=== PATIENT | male | born 1940 | race Caucasian/White ===

== ENCOUNTER 2018-05-05 21:13 | Emergency (ER) | payer MEDICARE ==
[~2018-05-05] VITALS: Ht 182.9 cm; Wt 87.1 kg
--- NOTE | 2018-05-05 21:13 | NUR ---
BBRA 89 FROM HOME,[facility] TOOK AMBIEN 6.25MG X4,XANAX 0.25MG X12.+SI,-HI -N/V/D. VSS NO ACUTE DISTRESS AT THIS TIME. BREATHING WNL WITH ADEQUATE CHEST RISE/FALL. PT IS VISABLY SAD AND VERBALIZING INTENT FOR SI WITH OVERDOSE. SKIN WARM AND INTACT. PATIENT PLACED ON PULSE OX AND MONITOR. WILL CONTINUE TO MONITOR FOR ANY CHANGES DURING THE SHIFT.
--- NOTE | 2018-05-05 21:14 | NUR ---
ER MD GARCIA AT BEDSIDE
[2018-05-05 21:41] LABS: BASOPHILS % (AUTO) 0.6 % (0.0-2.0); EOSINOPHILS % (AUTO) 1.7 % (0.0-6.0); HEMATOCRIT 46 % (39-51); HEMOGLOBIN 15.6 g/dL (13.5-17.5); LYMPHOCYTES # (AUTO) 1.1 /CMM (0.8-4.8); LYMPHOCYTES % (AUTO) 13.9 % (20.0-44.0); MEAN CORPUSCULAR HEMOGLOBIN 31 PG (26.0-33.0); MEAN CORPUSCULAR HGB CONC 34 g/dl (31.0-36.0); MEAN CORPUSCULAR VOLUME 92 fL (80-96); MONOCYTES # (AUTO) 0.7 /CMM (0.1-1.30); NEUTROPHILS # (AUTO) 5.8 /CMM (1.8-8.9); NEUTROPHILS % (AUTO) 74.8 % (43.0-81.0); PLATELET COUNT (AUTO) 260 /CMM (150-450); RDW COEFFICIENT OF VARIATION 12.9 (11.5-15.0); RED BLOOD CELL COUNT(AUTO) 5.02 MIL/uL (4.5-6.0); WHITE BLOOD COUNT (AUTO) 7.7 K/uL (4.3-11.0)
[2018-05-05 21:42] LABS: APPEARANCE,URINE Clear (CLEAR); BILIRUBIN,URINE Negative (NEGATIVE); BLOOD, URINE Negative Ery/uL (NEGATIVE); COLOR,URINE Yellow (YELLOW); KETONES,URINE Negative (NEGATIVE); LEUKOCYTE ESTERASE ,URINE Negative (NEGATIVE); NITRITE, URINE Negative (NEGATIVE); PH,URINE 5.5 (5.0-8.0); PROTEIN,URINE Negative (NEGATIVE); UGLUCOSE Negative (NEGATIVE); UROBILINOGEN,URINE 0.2 EU/dL (0.2)
--- NOTE | 2018-05-05 21:50 | NUR ---
DEPUTY COMMISSIONER AT BEDSIDE
[2018-05-05 21:53] LABS: CALCIUM, SERUM 9.2 mg/dL (8.5-10.1); CARBON DIOXIDE 23 mmol/L (21-32); CHLORIDE 103 mmol/L (98-107); CREATININE 1.6 mg/dL (0.6-1.3); GLUCOSE 107 mg/dL (74-106); POTASSIUM 4.2 mmol/L (3.5-5.1); SODIUM SERUM 135 mmol/L (136-145); UREA NITROGEN, BLOOD 21 mg/dL (7-18)
[2018-05-05 21:58] LABS: ALANINE AMINOTRANSFERASE 23 U/L (12-78); ALBUMIN 3.6 g/dL (3.4-5.0); ALKALINE PHOSPHATASE 79 U/L (46-116); ASPARTATE AMINOTRANSFERASE 19 U/L (15-37); BILIRUBIN,DIRECT 0.2 mg/dL (0.0-0.2); BILIRUBIN,TOTAL 0.8 mg/dL (0.2-1.0); TOTAL PROTEIN, SERUM 7.3 g/dL (6.4-8.2)
[2018-05-05 21:59] LABS: ACETAMINOPHEN 0 ug/ml (10-30); ALCOHOL, BLOOD < 5 mg/dL (0-0); SALICYLATE 1.2 mg/dL (2.8-20.0)
[2018-05-05] MEDS ORDERED: IV NS 0.9% 1,000 ML BAG IV ONE (22:00)
--- NOTE | 2018-05-05 22:00 | NUR ---
EKG AT [facility]
--- NOTE | 2018-05-05 22:09 | NUR ---
CALLED [employer]
--- NOTE | 2018-05-05 23:50 | NUR ---
PT ACCEPTED AT [facility] UNDER [facility] SILVERIO. BE DNUMBER [id number]; REPORT NUMBER [id number]
--- NOTE | 2018-05-05 23:52 | NUR ---
CALLED [facility]; ETA 45MINUTES; TRIP NUMBER [id number]
--- NOTE | 2018-05-06 00:20 | NUR ---
REPORT GIVEN TO DENISSE AT [facility]
[2018-05-06 01:23] VITALS: BP 151/80
== END 2018-05-06 01:18 ==
LOC: ER 21:16
DX: T42.4X2A Poisoning by benzodiazepines, intentional self-harm, initial encounter (principal); F32.9 Major depressive disorder, single episode, unspecified; F41.9 Anxiety disorder, unspecified; Y92.89 Other specified places as the place of occurrence of the external cause
CPT/HCPCS: 36415; 71045-TC; 80048-TC; 80076-TC; 80305; 81000-TC; 85025-TC; G0480; Z7610

== ENCOUNTER 2018-09-21 14:46 | Inpatient (IN) | payer MEDICARE ==
[~2018-09-21] VITALS: Ht 182.9 cm; Wt 80.0 kg
[2018-09-21 15:23] LABS: BASOPHILS % (AUTO) 0.2 % (0.0-2.0); EOSINOPHILS % (AUTO) 0.4 % (0.0-6.0); HEMATOCRIT 42 % (39-51); HEMOGLOBIN 14.5 g/dL (13.5-17.5); LYMPHOCYTES # (AUTO) 1.1 /CMM (0.8-4.8); LYMPHOCYTES % (AUTO) 10.4 % (20.0-44.0); MEAN CORPUSCULAR HGB CONC 34 g/dl (31.0-36.0); MEAN CORPUSCULAR VOLUME 93 fL (80-96); MONOCYTES # (AUTO) 0.3 /CMM (0.1-1.30); MONOCYTES % (AUTO) 3.2 % (2.0-12.0); NEUTROPHILS % (AUTO) 85.8 % (43.0-81.0); PLATELET COUNT (AUTO) 243 /CMM (150-450); RED BLOOD CELL COUNT(AUTO) 4.54 MIL/uL (4.5-6.0); WHITE BLOOD COUNT (AUTO) 10.5 K/uL (4.3-11.0)
[2018-09-21] MEDS ORDERED: IV NS 0.9% 1,000 ML BAG IV ONE (15:30)
[2018-09-21 15:31] LABS: CALCIUM, SERUM 9.6 mg/dL (8.5-10.1); CARBON DIOXIDE 26 mmol/L (21-32); CHLORIDE 104 mmol/L (98-107); CREATININE 1.6 mg/dL (0.6-1.3); GLUCOSE 133 mg/dL (74-106); POTASSIUM 5.4 mmol/L (3.5-5.1); SODIUM SERUM 138 mmol/L (136-145); UREA NITROGEN, BLOOD 34 mg/dL (7-18)
[2018-09-21 15:37] LABS: ACETAMINOPHEN 0 ug/ml (10-30); ALANINE AMINOTRANSFERASE 35 U/L (12-78); ALBUMIN 3.9 g/dL (3.4-5.0); ALCOHOL, BLOOD < 3 mg/dL (0-0); ALKALINE PHOSPHATASE 88 U/L (46-116); ASPARTATE AMINOTRANSFERASE 28 U/L (15-37); BILIRUBIN,DIRECT 0.1 mg/dL (0.0-0.2); BILIRUBIN,TOTAL 0.7 mg/dL (0.2-1.0); SALICYLATE 1.6 mg/dL (2.8-20.0); TOTAL PROTEIN, SERUM 7.8 g/dL (6.4-8.2)
[2018-09-21 15:46] LABS: SERUM AMMONIA < 10 umol/L (11-32)
[2018-09-21 16:05] LABS: THYROID STIMULATING HORMONE 1.168 uIU/mL (0.358-3.74)
[2018-09-21 16:16] LABS: APPEARANCE,URINE Cloudy (CLEAR); BILIRUBIN,URINE Negative (NEGATIVE); BLOOD, URINE Moderate Ery/uL (NEGATIVE); COLOR,URINE Yellow (YELLOW); KETONES,URINE Negative (NEGATIVE); LEUKOCYTE ESTERASE ,URINE Small (NEGATIVE); NITRITE, URINE Positive (NEGATIVE); PH,URINE 5.5 (5.0-8.0); PROTEIN,URINE Negative (NEGATIVE); UGLUCOSE Negative (NEGATIVE); UROBILINOGEN,URINE 0.2 EU/dL (0.2)
[2018-09-21 17:10] LABS: BACTERIA,URINE 3+ /HPF (None Seen); RBC,URINE 21-50 /HPF (0-2); SQUAMOUS EPITHELIAL CELL,UR Few /HPF (None Seen)
[2018-09-21] MEDS ORDERED: CEFTRIAXONE 1 G VIAL IM ONE (18:30)
[2018-09-21] MEDS ORDERED: CEFTRIAXONE 1GM BAG (ER ONLY) 50 ML IV ONE (18:47)
[2018-09-21] MEDS ORDERED: CEFTRIAXONE 1GM BAG (ER ONLY) 1 GM/50 ML PIGGYBACK IV ONE (19:00)
[2018-09-21] MEDS ORDERED: Z GUARD REMEDY 2 OZ OINT TP PRN (19:30)
[2018-09-21] MEDS ORDERED: MAGNESIUM HYDROXIDE 30 ML UDC PO PRN (19:30)
[2018-09-21] MEDS ORDERED: ONDANSETRON HCL/PF 4 MG/2 ML VIAL IVP PRN (19:30)
[2018-09-21] MEDS ORDERED: ACETAMINOPHEN 325 MG TABLET PO PRN (19:30)
[2018-09-21] MEDS ORDERED: ZOLP5TAB8 PO (19:58)
[2018-09-21] MEDS ORDERED: ESCI10TA PO (19:58)
[2018-09-21] MEDS ORDERED: TAMS-12 PO (19:58)
[2018-09-21] MEDS ORDERED: LORA0.5T PO (19:58)
[2018-09-21] MEDS ORDERED: QUET25TA PO (19:58)
[2018-09-21] MEDS ORDERED: ATEN25TA PO (19:58)
[2018-09-21 20:00] VITALS: BP 122/76
[2018-09-21] MEDS: ENOXAPARIN SODIUM 40 MG/0.4 ML DISP.SYRIN SQ SCH (20:36)
[2018-09-21] MEDS: IV NS 0.9% 1,000 ML IV PRN (20:36)
[2018-09-22] MEDS ORDERED: QUETIAPINE FUMARATE 25 MG TABLET PO PRN
[2018-09-22 00:18] VITALS: BP 124/64
[2018-09-22 04:48] VITALS: BP 109/57
[2018-09-22] MEDS: IV NS 0.9% 1,000 ML IV PRN (06:16)
[2018-09-22 06:35] LABS: BASOPHILS % (AUTO) 0.2 % (0.0-2.0); EOSINOPHILS % (AUTO) 1.3 % (0.0-6.0); HEMATOCRIT 38 % (39-51); LYMPHOCYTES # (AUTO) 1.1 /CMM (0.8-4.8); LYMPHOCYTES % (AUTO) 12.5 % (20.0-44.0); MEAN CORPUSCULAR HGB CONC 34 g/dl (31.0-36.0); MEAN CORPUSCULAR VOLUME 92 fL (80-96); MONOCYTES # (AUTO) 0.9 /CMM (0.1-1.30); MONOCYTES % (AUTO) 10.6 % (2.0-12.0); NEUTROPHILS # (AUTO) 6.7 /CMM (1.8-8.9); NEUTROPHILS % (AUTO) 75.4 % (43.0-81.0); PLATELET COUNT (AUTO) 224 /CMM (150-450); RED BLOOD CELL COUNT(AUTO) 4.12 MIL/uL (4.5-6.0); WHITE BLOOD COUNT (AUTO) 8.9 K/uL (4.3-11.0)
[2018-09-22 06:56] LABS: CALCIUM, SERUM 8.6 mg/dL (8.5-10.1); CARBON DIOXIDE 21 mmol/L (21-32); CHLORIDE 109 mmol/L (98-107); CREATININE 1.5 mg/dL (0.6-1.3); GLUCOSE 81 mg/dL (74-106); MAGNESIUM 1.6 mg/dL (1.8-2.4); PHOSPHORUS 2.5 mg/dL (2.5-4.9); POTASSIUM 4.1 mmol/L (3.5-5.1); SODIUM SERUM 141 mmol/L (136-145); UREA NITROGEN, BLOOD 27 mg/dL (7-18)
[2018-09-22 06:58] LABS: CHOLESTEROL 196 mg/dL (<200); HDL CHOLESTEROL 30 mg/dL (40-60); LDL 135 mg/dL (0-99); TRIGLYCERIDES 192 mg/dL (30-150)
[2018-09-22 09:00] VITALS: BP 120/58
[2018-09-22] MEDS: Magnesium 1GM/D5W 100ML PREMIX 100 ML IV SCH ×4 (11:15→16:16)
[2018-09-22] MEDS ORDERED: ESCITALOPRAM OXALATE (10 MG) 10 MG TABLET PO SCH (12:00)
[2018-09-22] MEDS: QUETIAPINE FUMARATE 25 MG TABLET PO SCH (16:49)
[2018-09-22] MEDS: CEFTRIAXONE 1 G in IV D5W 50 ML IV SCH (16:56)
[2018-09-22 17:00] VITALS: BP 122/56
[2018-09-22 20:00] VITALS: BP 105/52
[2018-09-22 20:05] VITALS: BP 105/52
[2018-09-22] MEDS: ATORVASTATIN 40 MG TABLET PO SCH (21:09)
[2018-09-22] MEDS: TAMSULOSIN 0.4 MG CAP.SR.24H PO SCH (21:09)
[2018-09-22] MEDS: ENOXAPARIN SODIUM 40 MG/0.4 ML DISP.SYRIN SQ SCH (21:10)
[2018-09-22] MEDS: ZOLPIDEM TARTRATE 5 MG TABLET PO PRN (22:48)
[2018-09-23] MEDS: IV NS 0.9% 1,000 ML IV PRN ×3 (02:19→23:57)
[2018-09-23 06:39] LABS: BASOPHILS % (AUTO) 0.4 % (0.0-2.0); EOSINOPHILS % (AUTO) 3.9 % (0.0-6.0); HEMATOCRIT 38 % (39-51); HEMOGLOBIN 13.1 g/dL (13.5-17.5); LYMPHOCYTES # (AUTO) 1.3 /CMM (0.8-4.8); LYMPHOCYTES % (AUTO) 20.8 % (20.0-44.0); MEAN CORPUSCULAR HGB CONC 34 g/dl (31.0-36.0); MEAN CORPUSCULAR VOLUME 93 fL (80-96); MONOCYTES # (AUTO) 0.7 /CMM (0.1-1.30); MONOCYTES % (AUTO) 10.7 % (2.0-12.0); NEUTROPHILS # (AUTO) 4.1 /CMM (1.8-8.9); NEUTROPHILS % (AUTO) 64.2 % (43.0-81.0); PLATELET COUNT (AUTO) 202 /CMM (150-450); RED BLOOD CELL COUNT(AUTO) 4.12 MIL/uL (4.5-6.0); WHITE BLOOD COUNT (AUTO) 6.5 K/uL (4.3-11.0)
[2018-09-23 07:01] LABS: CALCIUM, SERUM 8.5 mg/dL (8.5-10.1); CARBON DIOXIDE 23 mmol/L (21-32); CHLORIDE 109 mmol/L (98-107); CREATININE 1.6 mg/dL (0.6-1.3); GLUCOSE 85 mg/dL (74-106); MAGNESIUM 2.3 mg/dL (1.8-2.4); PHOSPHORUS 2.6 mg/dL (2.5-4.9); POTASSIUM 3.8 mmol/L (3.5-5.1); SODIUM SERUM 141 mmol/L (136-145); UREA NITROGEN, BLOOD 28 mg/dL (7-18)
[2018-09-23 07:59] VITALS: BP 118/66
[2018-09-23 08:00] VITALS: BP 118/66
[2018-09-23] MEDS: QUETIAPINE FUMARATE 25 MG TABLET PO SCH ×2 (08:05→17:20)
[2018-09-23] MEDS: ATENOLOL 25 MG TABLET PO SCH (08:07)
[2018-09-23] MEDS ORDERED: DULOXETINE HCL 30 MG CAPSULE.DR PO SCH (13:00)
[2018-09-23 16:00] VITALS: BP 122/66
[2018-09-23] MEDS: CEFTRIAXONE 1 G in IV D5W 50 ML IV SCH (17:20)
[2018-09-23 20:00] VITALS: BP 128/73
[2018-09-23] MEDS: TAMSULOSIN 0.4 MG CAP.SR.24H PO SCH (21:44)
[2018-09-23] MEDS: DULOXETINE HCL 30 MG CAPSULE.DR PO SCH (21:44)
[2018-09-23] MEDS: ATORVASTATIN 40 MG TABLET PO SCH (21:44)
[2018-09-23] MEDS: ENOXAPARIN SODIUM 40 MG/0.4 ML DISP.SYRIN SQ SCH (21:48)
[2018-09-23] MEDS: ZOLPIDEM TARTRATE 5 MG TABLET PO PRN (23:01)
[2018-09-24 06:44] LABS: BASOPHILS % (AUTO) 0.4 % (0.0-2.0); EOSINOPHILS % (AUTO) 4.7 % (0.0-6.0); HEMATOCRIT 39 % (39-51); HEMOGLOBIN 13.4 g/dL (13.5-17.5); LYMPHOCYTES # (AUTO) 1.4 /CMM (0.8-4.8); LYMPHOCYTES % (AUTO) 21.8 % (20.0-44.0); MEAN CORPUSCULAR HGB CONC 35 g/dl (31.0-36.0); MEAN CORPUSCULAR VOLUME 93 fL (80-96); MONOCYTES # (AUTO) 0.6 /CMM (0.1-1.30); MONOCYTES % (AUTO) 10.4 % (2.0-12.0); NEUTROPHILS # (AUTO) 3.9 /CMM (1.8-8.9); NEUTROPHILS % (AUTO) 62.7 % (43.0-81.0); PLATELET COUNT (AUTO) 200 /CMM (150-450); WHITE BLOOD COUNT (AUTO) 6.2 K/uL (4.3-11.0)
[2018-09-24 07:14] LABS: CALCIUM, SERUM 8.4 mg/dL (8.5-10.1); CARBON DIOXIDE 22 mmol/L (21-32); CHLORIDE 109 mmol/L (98-107); CREATININE 1.4 mg/dL (0.6-1.3); GLUCOSE 90 mg/dL (74-106); MAGNESIUM 2.1 mg/dL (1.8-2.4); PHOSPHORUS 2.8 mg/dL (2.5-4.9); POTASSIUM 4.1 mmol/L (3.5-5.1); SODIUM SERUM 140 mmol/L (136-145); UREA NITROGEN, BLOOD 21 mg/dL (7-18)
[2018-09-24] MEDS: HYDROCODONE/APAP 5/325MG 1 EACH TABLET PO PRN ×2 (07:35→13:41)
[2018-09-24 08:00] VITALS: BP 130/73
[2018-09-24] MEDS: ATENOLOL 25 MG TABLET PO SCH (09:55)
[2018-09-24] MEDS: QUETIAPINE FUMARATE 25 MG TABLET PO SCH ×2 (09:55→17:21)
[2018-09-24] MEDS: DULOXETINE HCL 30 MG CAPSULE.DR PO SCH ×2 (09:55→21:17)
[2018-09-24 16:00] VITALS: BP 118/65
[2018-09-24] MEDS: CEFTRIAXONE 1 G in IV D5W 50 ML IV SCH (17:21)
[2018-09-24] MEDS: FINASTERIDE (5 MG) 5 MG TABLET PO SCH (18:38)
[2018-09-24 20:00] VITALS: BP 130/70
[2018-09-24] MEDS: ATORVASTATIN 40 MG TABLET PO SCH (21:11)
[2018-09-24] MEDS: TAMSULOSIN 0.4 MG CAP.SR.24H PO SCH (21:11)
[2018-09-24 22:00] VITALS: BP 130/70
[2018-09-24] MEDS ORDERED: TAMSULOSIN 0.4 MG CAP.SR.24H PO SCH (22:00)
[2018-09-25] MEDS: IV NS 0.9% 1,000 ML IV PRN ×2 (06:02→17:01)
[2018-09-25 06:06] VITALS: BP 130/70
[2018-09-25 06:59] LABS: BASOPHILS % (AUTO) 0.2 % (0.0-2.0); EOSINOPHILS % (AUTO) 4.2 % (0.0-6.0); HEMATOCRIT 36 % (39-51); HEMOGLOBIN 12.6 g/dL (13.5-17.5); LYMPHOCYTES # (AUTO) 1.1 /CMM (0.8-4.8); LYMPHOCYTES % (AUTO) 16.2 % (20.0-44.0); MEAN CORPUSCULAR HGB CONC 35 g/dl (31.0-36.0); MEAN CORPUSCULAR VOLUME 93 fL (80-96); MONOCYTES # (AUTO) 0.7 /CMM (0.1-1.30); NEUTROPHILS # (AUTO) 4.6 /CMM (1.8-8.9); NEUTROPHILS % (AUTO) 69.4 % (43.0-81.0); PLATELET COUNT (AUTO) 201 /CMM (150-450); RED BLOOD CELL COUNT(AUTO) 3.87 MIL/uL (4.5-6.0); WHITE BLOOD COUNT (AUTO) 6.6 K/uL (4.3-11.0)
[2018-09-25 07:17] LABS: ALANINE AMINOTRANSFERASE 33 U/L (12-78); ALBUMIN 2.8 g/dL (3.4-5.0); ALKALINE PHOSPHATASE 72 U/L (46-116); ASPARTATE AMINOTRANSFERASE 34 U/L (15-37); BILIRUBIN,TOTAL 0.7 mg/dL (0.2-1.0); CALCIUM, SERUM 8.4 mg/dL (8.5-10.1); CARBON DIOXIDE 23 mmol/L (21-32); CHLORIDE 108 mmol/L (98-107); CREATININE 1.4 mg/dL (0.6-1.3); GLUCOSE 90 mg/dL (74-106); MAGNESIUM 1.8 mg/dL (1.8-2.4); SODIUM SERUM 140 mmol/L (136-145); TOTAL PROTEIN, SERUM 5.9 g/dL (6.4-8.2); UREA NITROGEN, BLOOD 20 mg/dL (7-18)
[2018-09-25] MEDS: HYDROCODONE/APAP 5/325MG 1 EACH TABLET PO PRN (07:44)
[2018-09-25 08:00] VITALS: BP 127/67
[2018-09-25] MEDS: FINASTERIDE (5 MG) 5 MG TABLET PO SCH (08:36)
[2018-09-25] MEDS: ATENOLOL 25 MG TABLET PO SCH (08:36)
[2018-09-25] MEDS: QUETIAPINE FUMARATE 25 MG TABLET PO SCH ×2 (08:36→17:01)
[2018-09-25] MEDS: DULOXETINE HCL 30 MG CAPSULE.DR PO SCH ×2 (08:36→21:15)
[2018-09-25 16:00] VITALS: BP 117/59
[2018-09-25] MEDS: CEFTRIAXONE 1 G in IV D5W 50 ML IV SCH (17:02)
[2018-09-25 20:00] VITALS: BP 109/55
[2018-09-25] MEDS: TAMSULOSIN 0.4 MG CAP.SR.24H PO SCH (21:15)
[2018-09-25] MEDS: ATORVASTATIN 40 MG TABLET PO SCH (21:16)
[2018-09-25] MEDS ORDERED: TEMAZEPAM 7.5 MG CAPSULE PO PRN (22:00)
[2018-09-26] MEDS: HYDROCODONE/APAP 5/325MG 1 EACH TABLET PO PRN ×2 (02:04→17:23)
[2018-09-26] MEDS: IV NS 0.9% 1,000 ML IV PRN ×2 (06:15→20:50)
[2018-09-26 07:13] LABS: BASOPHILS % (AUTO) 0.7 % (0.0-2.0); EOSINOPHILS % (AUTO) 6.3 % (0.0-6.0); HEMATOCRIT 34 % (39-51); HEMOGLOBIN 11.8 g/dL (13.5-17.5); LYMPHOCYTES # (AUTO) 1.4 /CMM (0.8-4.8); LYMPHOCYTES % (AUTO) 24.2 % (20.0-44.0); MEAN CORPUSCULAR HGB CONC 35 g/dl (31.0-36.0); MEAN CORPUSCULAR VOLUME 92 fL (80-96); MONOCYTES # (AUTO) 0.7 /CMM (0.1-1.30); MONOCYTES % (AUTO) 11.7 % (2.0-12.0); NEUTROPHILS # (AUTO) 3.2 /CMM (1.8-8.9); NEUTROPHILS % (AUTO) 57.1 % (43.0-81.0); PLATELET COUNT (AUTO) 198 /CMM (150-450); RED BLOOD CELL COUNT(AUTO) 3.72 MIL/uL (4.5-6.0); WHITE BLOOD COUNT (AUTO) 5.7 K/uL (4.3-11.0)
[2018-09-26 07:23] LABS: CALCIUM, SERUM 8.1 mg/dL (8.5-10.1); CARBON DIOXIDE 22 mmol/L (21-32); CHLORIDE 109 mmol/L (98-107); CREATININE 1.4 mg/dL (0.6-1.3); GLUCOSE 87 mg/dL (74-106); MAGNESIUM 1.7 mg/dL (1.8-2.4); PHOSPHORUS 3.5 mg/dL (2.5-4.9); POTASSIUM 3.8 mmol/L (3.5-5.1); SODIUM SERUM 138 mmol/L (136-145); UREA NITROGEN, BLOOD 22 mg/dL (7-18)
[2018-09-26 08:00] VITALS: BP 121/68
[2018-09-26] MEDS: FINASTERIDE (5 MG) 5 MG TABLET PO SCH (08:05)
[2018-09-26] MEDS: DULOXETINE HCL 30 MG CAPSULE.DR PO SCH ×2 (08:05→20:48)
[2018-09-26 08:06] VITALS: BP 121/68
[2018-09-26] MEDS: QUETIAPINE FUMARATE 25 MG TABLET PO SCH ×2 (08:06→16:28)
[2018-09-26] MEDS: ATENOLOL 25 MG TABLET PO SCH (08:06)
[2018-09-26] MEDS: Magnesium 1GM/D5W 100ML PREMIX 100 ML IV SCH ×2 (11:40→12:38)
[2018-09-26] MEDS ORDERED: ATOR40TA PO (13:00)
[2018-09-26] MEDS ORDERED: QUET25TA PO (13:00)
[2018-09-26] MEDS ORDERED: LEVO750T21 PO (13:00)
[2018-09-26] MEDS ORDERED: DULO30CA2 PO (13:00)
[2018-09-26] MEDS: CEFTRIAXONE 1 G in IV D5W 50 ML IV SCH (16:28)
[2018-09-26 20:33] VITALS: BP 112/57
[2018-09-26] MEDS: ATORVASTATIN 40 MG TABLET PO SCH (21:23)
[2018-09-26] MEDS ORDERED: TAMSULOSIN 0.4 MG CAP.SR.24H PO SCH (22:00)
[2018-09-27 06:17] LABS: BASOPHILS % (AUTO) 0.5 % (0.0-2.0); EOSINOPHILS % (AUTO) 5.8 % (0.0-6.0); HEMATOCRIT 35 % (39-51); HEMOGLOBIN 12.2 g/dL (13.5-17.5); LYMPHOCYTES # (AUTO) 0.9 /CMM (0.8-4.8); LYMPHOCYTES % (AUTO) 17.8 % (20.0-44.0); MEAN CORPUSCULAR HGB CONC 35 g/dl (31.0-36.0); MEAN CORPUSCULAR VOLUME 93 fL (80-96); MONOCYTES # (AUTO) 0.6 /CMM (0.1-1.30); MONOCYTES % (AUTO) 11.9 % (2.0-12.0); NEUTROPHILS # (AUTO) 3.3 /CMM (1.8-8.9); PLATELET COUNT (AUTO) 212 /CMM (150-450); RED BLOOD CELL COUNT(AUTO) 3.78 MIL/uL (4.5-6.0); WHITE BLOOD COUNT (AUTO) 5.2 K/uL (4.3-11.0)
[2018-09-27 06:43] LABS: CALCIUM, SERUM 8.2 mg/dL (8.5-10.1); CARBON DIOXIDE 22 mmol/L (21-32); CHLORIDE 111 mmol/L (98-107); CREATININE 1.3 mg/dL (0.6-1.3); GLUCOSE 91 mg/dL (74-106); MAGNESIUM 1.9 mg/dL (1.8-2.4); PHOSPHORUS 3.6 mg/dL (2.5-4.9); POTASSIUM 4.2 mmol/L (3.5-5.1); SODIUM SERUM 141 mmol/L (136-145); UREA NITROGEN, BLOOD 23 mg/dL (7-18)
[2018-09-27 08:00] VITALS: BP 132/70
[2018-09-27] MEDS: DULOXETINE HCL 30 MG CAPSULE.DR PO SCH (08:46)
[2018-09-27] MEDS: QUETIAPINE FUMARATE 25 MG TABLET PO SCH (08:46)
[2018-09-27] MEDS: FINASTERIDE (5 MG) 5 MG TABLET PO SCH (08:46)
[2018-09-27 08:47] VITALS: BP 132/70
[2018-09-27] MEDS: ATENOLOL 25 MG TABLET PO SCH (08:47)
[2018-09-27] MEDS: IV NS 0.9% 1,000 ML IV PRN (08:48)
== END 2018-09-27 15:00 | disposition home health service (06) | DRG 193 ==
LOC: ER 14:48 → TELE 18:32 → MED 09-22 10:27
PROVIDERS: ADMIT Nurse Practitioner Acute Care; ATTEND Registered Nurse
DX: J15.9 Unspecified bacterial pneumonia (principal); N17.0 Acute kidney failure with tubular necrosis; G92 Toxic encephalopathy; N39.0 Urinary tract infection, site not specified; F33.3 Major depressive disorder, recurrent, severe with psychotic symptoms; E87.5 Hyperkalemia; E83.42 Hypomagnesemia; F09 Unspecified mental disorder due to known physiological condition; E78.5 Hyperlipidemia, unspecified; F41.1 Generalized anxiety disorder; R33.9 Retention of urine, unspecified; T14.91XA Suicide attempt, initial encounter; N40.1 Benign prostatic hyperplasia with lower urinary tract symptoms; I51.7 Cardiomegaly; R31.0 Gross hematuria
CPT/HCPCS: 36415; 70450-TC; 71045-TC; 72125-TC; 76770-TC; 80048-TC; 80053-TC; 80061-TC; 80076-TC; 80305; 81000-TC; 82140-TC; 82550-TC; 82962-TC; 83735-TC; 84100-TC; 84443-TC; 84484-TC; 85025-TC; 85730-TC; 87081-TC; 87086-TC; A4217; G0378; G0480; J0696; J1650; J3475; J7030; J7060

== ENCOUNTER 2018-10-11 00:21 | Emergency (ER) | payer MEDICARE ==
[~2018-10-11] VITALS: Ht 182.9 cm; Wt 88.5 kg
[~2018-10-11 00:21] MED LIST: ATEN25TA PO; ATOR40TA PO; DULO30CA2 PO; LEVO750T21 PO; QUET25TA PO; TAMS-12 PO
--- NOTE | 2018-10-11 01:00 | NUR ---
PT TERENCE FROM HOME C/O SEVERE 10/10 LOWER ABD PAIN WITH URGE TO PEE BUT UNABLE TO URINATE AFTER HIS ZHU CATHETER WAS ACCIDENTALLY TUGGED ON EARLIER TODAY AROUND 1700. PT DENIES -N/-V/-D. AFEBRILE. Pt BEING SEEN BY MD AT BEDSIDE.
[2018-10-11] MEDS ORDERED: HYDROMORPHONE INJ 0.5 MG/0.5 ML SYRINGE ONE (01:48)
[2018-10-11] MEDS ORDERED: ONDANSETRON 4 MG TAB.RAPDIS ONE (01:49)
[2018-10-11] MEDS ORDERED: HYDROMORPHONE 1 MG/1 ML DISP.SYRIN IM ONE (02:00)
[2018-10-11] MEDS ORDERED: ONDANSETRON 4 MG TAB.RAPDIS SL ONE (02:00)
[2018-10-11] MEDS ORDERED: TAMSULOSIN 0.4 MG CAP.SR.24H PO ONE (03:00)
--- NOTE | 2018-10-11 03:00 | NUR ---
ZHU CATHETER HAS BEEN IRRIGATED MULT TIMES WITH STERILE WATER. BLOOD CLOT HAS FINALLY DISLODGED. Pt's ZHU CATH IF FLOWING FREELY WITH BLOOD TINGED URINE. COLLECTED URINE SAMPLE AND SENT WITH LAB.
[2018-10-11] MEDS ORDERED: TAMSULOSIN 0.4 MG CAP.SR.24H ONE (03:08)
[2018-10-11 03:15] LABS: APPEARANCE,URINE CLOUDY (CLEAR); BILIRUBIN,URINE NEGATIVE (NEGATIVE); BLOOD, URINE 3+ Ery/uL (NEGATIVE); COLOR,URINE RED (YELLOW); KETONES,URINE NEGATIVE (NEGATIVE); LEUKOCYTE ESTERASE ,URINE NEGATIVE (NEGATIVE); NITRITE, URINE NEGATIVE (NEGATIVE); PROTEIN,URINE 1+ mg/dl (NEGATIVE); UGLUCOSE NEGATIVE (NEGATIVE); UROBILINOGEN,URINE 0.2 EU/dL (0.2)
[2018-10-11 03:17] LABS: BACTERIA,URINE Few /HPF (None Seen); RBC,URINE TOO NUMEROUS TO COUN /HPF (0-2); SQUAMOUS EPITHELIAL CELL,UR Rare /HPF (None Seen)
--- NOTE | 2018-10-11 03:30 | NUR ---
ADMINISTERED ALL ORDERED MEDS
--- NOTE | 2018-10-11 04:00 | NUR ---
Pt IS CLEARED FOR DISCHARGE BACK HOME. Pt GAVE NEIGHBOR's NUMBER TO CALL TO COME PICK HIM UP AND TAKE HIME BACK HOME. NEIGHBOR HAS BEEN REACHED AND IS ON THEIR WAY TO THE ER.
--- NOTE | 2018-10-11 04:39 | NUR ---
Patient discharged to home in stable condition. Written and verbal after care instructions given. Patient verbalizes understanding of instruction. Patient's neighbor/friend has arrived to take pt back home. Patient left facility via wheelchair assisted by staff member. No s/s of acute distress or sob noted. Pt was safely transfered to car. No iv access on pt.
[2018-10-11 04:44] VITALS: BP 135/68
== END 2018-10-11 04:45 | disposition home or self-care (01) ==
LOC: ER 00:22
DX: R33.9 Retention of urine, unspecified (principal); I10 Essential (primary) hypertension; F32.9 Major depressive disorder, single episode, unspecified; F41.9 Anxiety disorder, unspecified; Z60.2 Problems related to living alone; Z79.899 Other long term (current) drug therapy
CPT/HCPCS: 81000-TC; A4217; Q0162

== ENCOUNTER 2025-01-03 09:53 | Emergency (ER) | payer BC, MEDICARE ==
[~2025-01-03] VITALS: Ht 167.6 cm; Wt 97.5 kg
[2025-01-03] MEDS ORDERED: ACETAMINOPHEN ES 500 MG TABLET ONE (10:27)
[2025-01-03] MEDS: ACETAMINOPHEN ES 500 MG TABLET PO ONE (10:28)
[2025-01-03 10:30] LABS: BASOPHILS % (AUTO) 0.2 % (0.0-2.0); EOSINOPHILS % (AUTO) 0.2 % (0.0-6.0); HEMATOCRIT 43 % (39-51); HEMOGLOBIN 14.8 g/dL (13.5-17.5); LYMPHOCYTES # (AUTO) 0.7 K/uL (0.8-4.8); LYMPHOCYTES % (AUTO) 5.9 % (20.0-44.0); MEAN CORPUSCULAR HEMOGLOBIN 32 PG (26.0-33.0); MEAN CORPUSCULAR HGB CONC 35 g/dl (31.0-36.0); MEAN CORPUSCULAR VOLUME 92 fL (80-96); MONOCYTES # (AUTO) 0.7 K/uL (0.1-1.30); MONOCYTES % (AUTO) 5.8 % (2.0-12.0); NEUTROPHILS % (AUTO) 87.9 % (43.0-81.0); PLATELET COUNT (AUTO) 237 K/uL (150-450); RED BLOOD CELL COUNT(AUTO) 4.62 MIL/uL (4.5-6.0); RED CELL DISTRIBUTION WIDTH 14.8 % (11.5-15.0); WHITE BLOOD COUNT (AUTO) 11.4 K/uL (4.3-11.0)
[2025-01-03 10:41] LABS: CALCIUM, SERUM 9.9 mg/dL (8.5-10.1); CREATININE 2.2 mg/dL (0.6-1.3); POTASSIUM 4.6 mmol/L (3.5-5.1)
[2025-01-03] MEDS ORDERED: ACET-2605 PO (12:47)
[2025-01-03] MEDS ORDERED: LIDO30AD10 TP (12:47)
[2025-01-03] MEDS ORDERED: LIDOCAINE 5% (PATCH) 1 EA PATCH TP ONE (12:50)
[2025-01-03] MEDS: LIDOCAINE 5% (PATCH) 1 EA PATCH TP STA (12:53)
[2025-01-03 14:27] VITALS: BP 127/63; TEMP 98; O2SAT 95
== END 2025-01-03 14:28 | disposition home or self-care (01) ==
LOC: ER 09:57
DX: S22.9XXA Fracture of bony thorax, part unspecified, initial encounter for closed fracture (principal); M54.50 Low back pain, unspecified; M79.601 Pain in right arm; I11.9 Hypertensive heart disease without heart failure; F32.A Depression, unspecified; F41.9 Anxiety disorder, unspecified; N28.1 Cyst of kidney, acquired; N40.0 Benign prostatic hyperplasia without lower urinary tract symptoms; Z60.2 Problems related to living alone; Z79.899 Other long term (current) drug therapy; W01.0XXA Fall on same level from slipping, tripping and stumbling without subsequent striking against object, initial encounter; Y93.89 Activity, other specified; Y92.89 Other specified places as the place of occurrence of the external cause; Y99.8 Other external cause status
CPT/HCPCS: 36415; 71045-TC; 73080-TC; 73110; 80048-TC; 82550-TC; 85025-TC